=== PATIENT | male | born 1940 ===

== ENCOUNTER 2017-08-21 11:19 | Inpatient (IN) | payer OTHER ==
[~2017-08-21] VITALS: Ht 180.3 cm; Wt 97.5 kg
[2017-08-21] MEDS ORDERED: LEVSOD50 PO (15:25)
[2017-09-04 05:05] LABS: Hematocrit 40.1 % (37.0-53.0); Hemoglobin 12.8 g/dL (13.5-17.5); Mean Corpuscular HGB 28.4 pg (26.0-34.0); Mean Corpuscular HGB Conc 31.9 g/dL (31.5-36.5); Mean Platelet Volume 9.5 fL (9.1-12.4); Platelet Count 154 K/mm3 (150-400); RDW Coefficient Variation 12.5 % (11.7-14.2); White Blood Cell Count 12.92 K/mm3 (4.00-11.30)
[2017-09-04 05:10] LABS: Mean Corpuscular Volume 89 fL (80-100)
[2017-09-04 05:23] LABS: Anion Gap 8 mmol/L (6-16); Blood Urea Nitrogen 23 mg/dL (8-24); Bun/Creatinine Ratio 22.5 (12.0-20.0); CO2, Blood 25 mmol/L (21-32); Calcium, Blood 8.7 mg/dL (8.5-10.1); Chloride, Blood 105 mmol/L (98-108); Creatinine, Blood 1.02 mg/dL (0.60-1.20); Glomerular Filtration Rate >60 (60-); Glucose, Blood 154 mg/dL (70-99); Potassium, Blood 4.5 mmol/L (3.5-5.5); Sodium, Blood 138 mmol/L (136-145)
[2017-09-04 05:57] LABS: BAND PERCENT MAN 15 % (0-8); BASOPHILS PERCENT MAN 0 % (0-2); EOSINOPHILS PERCENT MAN 0 % (0-6); LYMPHOCYTES ABSOLUTE MAN 0.25 K/mm3 (0.84-5.20); LYMPHOCYTES PERCENT MAN 2 % (21-46); MONOCYTES ABSOLUTE MAN 0.51 K/mm3 (0.16-1.47); MONOCYTES PERCENT MAN 4 % (4-13); NEUTROPHILS ABSOLUTE MAN 12.14 K/mm3 (1.96-9.15); SEG NEUTROPHILS PERCENT MAN 79 % (41-73); TOTAL CELLS COUNTED 100
[2017-09-04] MEDS ORDERED: Percocet 5-3251 EACH PO (08:41)
[2017-09-04] MEDS ORDERED: ASPI325EC PO (08:41)
== END 2017-09-04 10:55 | disposition home or self-care (01) | DRG 470 ==
LOC: SURS 09-03 12:50 → PRE IP 09-03 14:00 → SURS 09-03 18:49
PROVIDERS: Orthopaedic Surgery
PROC: BQ111ZZ Fluoroscopy of Left Hip using Low Osmolar Contrast (ICD-10-PCS; 2017-09-03)
PROC: 0SRB04Z Replacement of Left Hip Joint with Ceramic on Polyethylene Synthetic Substitute, Open Approach (ICD-10-PCS; principal; 2017-09-03 14:00)
DX: M16.12 Unilateral primary osteoarthritis, left hip (principal); M24.7 Protrusio acetabuli; E03.9 Hypothyroidism, unspecified; Z79.899 Other long term (current) drug therapy
CPT/HCPCS: 36415; 72170; 80048; 85025; 86850; 86900; 86901; 88300; 97110; 97116; 97161; 97530; C1776; G8978; G8979; G8980; J0171; J0690; J0735; J1100; J1885; J2250; J2405; J2795; J3010; J7120

== ENCOUNTER 2020-10-18 09:54 | Inpatient (IN) | payer OTHER ==
[~2020-10-18] VITALS: Ht 180.3 cm; Wt 97.1 kg
[~2020-10-18 09:54] MED LIST: ASPI325EC PO; EUTHYROX50 MCG PO; Percocet 5-3251 EACH PO
[2020-10-18] MEDS ORDERED: Aspirin EC81 MG PO (10:06)
[2020-10-18] MEDS ORDERED: ATOR20 PO (10:24)
[2020-10-18] MEDS ORDERED: Docusate S50 MG/5 ML PO (10:25)
[2020-10-18] MEDS ORDERED: NITR.4SL SL (10:25)
[2020-10-18] MEDS ORDERED: FEROSUL325 M1 PO (10:29)
[2020-10-18 10:33] LABS: BASOPHILS ABSOLUTE AUTO 0.03 K/mm3 (0.00-0.23); BASOPHILS PERCENT AUTO 1 % (0-2); EOSINOPHILS PERCENT AUTO 2 % (0-6); Hematocrit 26.8 % (37.0-53.0); Hemoglobin 8.9 g/dL (13.5-17.5); IMMATURE GRAN ABSOLUTE AUTO 0.09 K/mm3 (0.00-0.10); IMMATURE GRAN PERCENT AUTO 2 % (0-1); LYMPHOCYTES ABSOLUTE AUTO 0.54 K/mm3 (0.84-5.20); LYMPHOCYTES PERCENT AUTO 10 % (21-46); MONOCYTES ABSOLUTE AUTO 0.34 K/mm3 (0.16-1.47); MONOCYTES PERCENT AUTO 7 % (4-13); Mean Corpuscular HGB 28.9 pg (26.0-34.0); Mean Corpuscular HGB Conc 33.2 g/dL (31.5-36.5); Mean Corpuscular Volume 87 fL (80-100); Mean Platelet Volume 9.4 fL (9.1-12.4); NEUTROPHILS ABSOLUTE AUTO 4.15 K/mm3 (1.96-9.15); NEUTROPHILS PERCENT AUTO 79 % (41-73); Platelet Count 152 K/mm3 (150-400); RDW Coefficient Variation 13.4 % (11.7-14.2); Red Blood Cell Count 3.08 M/mm3 (4.30-5.90); White Blood Cell Count 5.25 K/mm3 (4.00-11.30)
[2020-10-18 10:53] LABS: Alanine Aminotransfer (ALT/SGP 20 U/L (12-78); Albumin, Blood 3.1 g/dL (3.4-5.0); Albumin/Globulin Ratio 1.2 (0.8-1.8); Alk Phos 67 U/L (50-136); Anion Gap 5 mmol/L (6-16); Aspartate Aminotrans (AST/SGOT 15 U/L (12-37); Bilirubin, Total 0.3 mg/dL (0.1-1.0); Blood Urea Nitrogen 33 mg/dL (8-24); Bun/Creatinine Ratio 29.2 (12.0-20.0); CO2, Blood 23 mmol/L (21-32); Calcium, Blood 8.2 mg/dL (8.5-10.1); Chloride, Blood 112 mmol/L (98-108); Creatinine, Blood 1.13 mg/dL (0.60-1.20); Globulin, Blood 2.5 g/dL (2.2-4.0); Glomerular Filtration Rate >60 (60-); Glucose, Blood 109 mg/dL (70-99); Potassium, Blood 4.1 mmol/L (3.5-5.5); Sodium, Blood 140 mmol/L (136-145); Total Protein, Blood 5.6 g/dL (6.4-8.2)
--- NOTE | 2020-10-18 17:10 | NUR ---
History, Chart, Medications and Allergies reviewed before start of procedure. Patient confirms NPO status and agrees with scheduled surgery. Pre-Op teaching done. Pt verbalizes understanding. Lungs clear T/O to Auscultation.
--- NOTE | 2020-10-18 17:18 | NUR ---
10/18/20 1718 Jarrett Ramon History, Chart, Medications and Allergies reviewed before start of procedure. MONITOR INTACT WITH CONTINUOUS PULSE OXIMETRY AND INTERMITTENT BP. 3-LEAD EKG REVIEWED WITH PHYSICIAN PRIOR TO START OF PROCEDURE. O2 VIA N/C INTACT THROUGHOUT SEDATION/PROCEDURE. Bite Block Placed. PATIENT DETERMINED TO BE ASA APPROPRIATE FOR PROPOFOL SEDATION PRIOR TO START OF PROCEDURE BY DR. REID.
--- NOTE | 2020-10-18 19:21 | NUR ---
SHIFT SUMMARY: PATIENT ADMIT FROM ED THIS SHIFT. PT A&O; CALM AND COOPERATIVE WITH CARE. NO C/O PAIN SINCE ARRIVAL ON MEDICAL. SCOPE PERFORMED THIS SHIFT; X3 BIOPSIES TAKEN; PT TOLERATED WELL; CLEAR LIQUID DIET STARTED; PROCTOSCOPE PLANNED FOR TOMORROW, 10/19. REPORT GIVEN TO ONCOMING RN.
--- NOTE | 2020-10-19 04:38 | NUR ---
SHIFT SUMMARY A/OX4, SBA TO BATHROOM. GAIT APPEARS MORE STEADY WHILE AMBULATING. PLAN IS FOR CLEAR LIQUID DIET, NPO AFTER LUNCH. GOLYTELY TO BEGIN AT 0600. DENIES PAIN OR SOB. VSS, NO ACUTE CHANGES AT THIS TIME. BED IN LOWEST POSITION WITH CALL LIGHT IN REACH. WILL CONTINUE TO MONITOR AND REPORT TO ONCOMING RN.
[2020-10-19 06:15] LABS: Anion Gap 4 mmol/L (6-16); Blood Urea Nitrogen 27 mg/dL (8-24); Bun/Creatinine Ratio 24.5 (12.0-20.0); CO2, Blood 25 mmol/L (21-32); Calcium, Blood 8.3 mg/dL (8.5-10.1); Chloride, Blood 112 mmol/L (98-108); Glomerular Filtration Rate >60 (60-); Glucose, Blood 110 mg/dL (70-99); Sodium, Blood 141 mmol/L (136-145)
--- NOTE | 2020-10-19 10:26 | NUR ---
SPOKE WITH INFECTION CONTROL WELL DAY SURGERY ABOUT COVID TESTING PRIOR TO TODAYS SCOPE WITH VERIFICATION MADE BY LEE QUINONES IN DAY SURGERY THAT COVID TEST NOT REQUIRED FOR SCOPE TO BE COMPLETED.
[2020-10-19 15:50] LABS: Hematocrit 26.8 % (37.0-53.0); Hemoglobin 8.9 g/dL (13.5-17.5)
[2020-10-19 16:39] LABS: Percent Saturation 9.2 % (20.0-50.0)
--- NOTE | 2020-10-19 17:13 | NUR ---
Patient states colon prep results clear. History, Chart, Medications and Allergies reviewed before start of procedure. Lungs clear T/O to Auscultation. Patient confirms NPO status and agrees with scheduled surgery. Pre-Op teaching done. Pt verbalizes understanding.
--- NOTE | 2020-10-19 17:32 | NUR ---
10/19/20 1735 Jarrett Ramon History, Chart, Medications and Allergies reviewed before start of procedure. MONITOR INTACT WITH CONTINUOUS PULSE OXIMETRY AND INTERMITTENT BP. 3-LEAD EKG REVIEWED WITH PHYSICIAN PRIOR TO START OF PROCEDURE. O2 VIA N/C INTACT THROUGHOUT SEDATION/PROCEDURE. PATIENT DETERMINED TO BE ASA APPROPRIATE FOR PROPOFOL SEDATION PRIOR TO START OF PROCEDURE BY DR. REID.
--- NOTE | 2020-10-19 18:02 | NUR ---
Spiritual care note: Per admit trigger, I met with Mr. Ruth to offer education about ACP. He states he is happy with his full-code status and he trusts his family to know what to do. He was pleasantly dismissive. Advised I would remain available.
--- NOTE | 2020-10-19 18:37 | NUR ---
SHIFT SUMMARY PT COMPLETED COLONOSCOPY PREP THIS MORNING AND APPEARED MOSTLY CLEARED OTHER THAN BROWN SEDIMENTLIKE MATERIAL WHICH DAY SURGERY RN REPORTED ADEQUATE FOR PROCEDURE. PT AMBULATING IN ROOM SEVERAL TIMES AND THEN IN HALLWAY WITH 1 PERSON CGA. REPORTED A FEELING OF LIGHTHEADED AND DIZZINESS HAS IMPROVED THROUGH THE DAY. AT BEDSIDE THIS AFTERNOON PRIOR TO DAY SURGERY COMING TO PICK PT UP. DAY SURGERY HERE AT 1630.
--- NOTE | 2020-10-19 18:53 | NUR ---
DR REID AT BEDSIDE.
[2020-10-20 05:01] LABS: Hemoglobin 7.9 g/dL (13.5-17.5)
--- NOTE | 2020-10-20 05:19 | NUR ---
SHIFT SUMMARY PT SLEPT ON AND OFF THROUGHOUT THE NIGHT. EAR PLUGS PROVIDED AND PT STATES IT WAS HELPFUL WITH SLEEPING THIS EVENING. PT DENIED ANY BLOODY STOOLS THIS EVENING, IN FACT NO BOWEL MOVEMENTS AT ALL TONIGHT. PT DENIED ABD PAIN OR NAUSEA. ANXIOUS TO KNOW WHEN HE WILL BE ABLE TO RETURN HOME, BUT PT WAS PLEASANT AND COOPERATIVE. VITAL SIGNS STABLE. WILL CONTINUE TO MONITOR.
[2020-10-20 11:10] LABS: Hematocrit 27.3 % (37.0-53.0); Hemoglobin 9.2 g/dL (13.5-17.5)
[2020-10-20] MEDS ORDERED: PANT40 PO (11:53)
--- NOTE | 2020-10-20 13:37 | NUR ---
DISCHARGE INSTRUCTIONS COMPLETED AND DISCUSSED WITH PT EXPRESSING UNDERSTANDING. NEW SCRIPT FAXED TO [facility]. TO [facility] VIA W/C WITH .
== END 2020-10-20 12:59 | disposition home or self-care (01) | DRG 378 ==
LOC: ER 09:54 → MEDS 12:41
PROVIDERS: Emergency Medicine; Nurse Practitioner Acute Care; Student in an Organized Health Care Education/Training Program; ADMIT Internal Medicine
PROC: 0DB98ZX Excision of Duodenum, Via Natural or Artificial Opening Endoscopic, Diagnostic (ICD-10-PCS; principal; 2020-10-18 16:00)
PROC: 0DB68ZX Excision of Stomach, Via Natural or Artificial Opening Endoscopic, Diagnostic (ICD-10-PCS; 2020-10-18 16:00)
PROC: 0DBL8ZX Excision of Transverse Colon, Via Natural or Artificial Opening Endoscopic, Diagnostic (ICD-10-PCS; 2020-10-19)
PROC: 0DBN8ZX Excision of Sigmoid Colon, Via Natural or Artificial Opening Endoscopic, Diagnostic (ICD-10-PCS; 2020-10-19)
PROC: 0DBK8ZZ Excision of Ascending Colon, Via Natural or Artificial Opening Endoscopic (ICD-10-PCS; 2020-10-19)
PROC: 0DBL8ZZ Excision of Transverse Colon, Via Natural or Artificial Opening Endoscopic (ICD-10-PCS; 2020-10-19)
PROC: 0DBK8ZX Excision of Ascending Colon, Via Natural or Artificial Opening Endoscopic, Diagnostic (ICD-10-PCS; 2020-10-19 17:30)
DX: K92.1 Melena (principal); D62 Acute posthemorrhagic anemia; K63.5 Polyp of colon; K29.00 Acute gastritis without bleeding; I95.2 Hypotension due to drugs; T46.3X5A Adverse effect of coronary vasodilators, initial encounter; K57.30 Diverticulosis of large intestine without perforation or abscess without bleeding; N40.0 Benign prostatic hyperplasia without lower urinary tract symptoms; E03.9 Hypothyroidism, unspecified; K64.8 Other hemorrhoids; E78.5 Hyperlipidemia, unspecified; Z96.642 Presence of left artificial hip joint; Z79.82 Long term (current) use of aspirin; Z79.899 Other long term (current) drug therapy
CPT/HCPCS: 36415; 80048; 80053; 82607; 82728; 82746; 83540; 83550; 83690; 85014; 85018; 85025; 88305; 88342; 93005; 93010; 96374; 99285-25; A9270; C9113; J2704; J2916; J7120

== ENCOUNTER 2022-10-18 07:25 | Day surgery (SDC) | payer OTHER ==
[~2022-10-18] VITALS: Ht 180.3 cm; Wt 93.1 kg
[~2022-10-18 07:25] MED LIST changes: +ATOR20 PO; +Aspirin EC81 MG PO; +Docusate S50 MG/5 ML PO; +FEROSUL325 M1 PO; +NITR.4SL SL; +PANT40 PO
[2022-10-18 09:25] VITALS: BP 110/69
== END 2022-10-18 09:42 | disposition home or self-care (01) ==
LOC: ORSCSDS 07:25
PROVIDERS: Student in an Organized Health Care Education/Training Program
PROC: 0DBK8ZX Excision of Ascending Colon, Via Natural or Artificial Opening Endoscopic, Diagnostic (ICD-10-PCS; principal; 2022-10-18 08:45)
PROC: 0DBL8ZX Excision of Transverse Colon, Via Natural or Artificial Opening Endoscopic, Diagnostic (ICD-10-PCS; principal; 2022-10-18 08:45)
DX: K92.1 Melena (principal); Z86.010 Personal history of colon polyps; D12.3 Benign neoplasm of transverse colon; D12.2 Benign neoplasm of ascending colon; K57.30 Diverticulosis of large intestine without perforation or abscess without bleeding; K64.8 Other hemorrhoids; E78.5 Hyperlipidemia, unspecified; I25.10 Atherosclerotic heart disease of native coronary artery without angina pectoris; E03.9 Hypothyroidism, unspecified; Z79.899 Other long term (current) drug therapy
CPT/HCPCS: 88305; J2704; J7120

== ENCOUNTER → 2023-05-21 | Outpatient (CLI) | payer OTHER | LOC: PLD 07:37 → LAB SHORT 07:37 | DX: L57.0 Actinic keratosis (principal); L82.0 Inflamed seborrheic keratosis | CPT/HCPCS: 88305 ==

== ENCOUNTER 2023-09-10 20:00 | Emergency (ER) | payer OTHER ==
[~2023-09-10] VITALS: Ht 180.3 cm; Wt 90.7 kg
[2023-09-10 20:32] VITALS: BP 141/86
[2023-09-10] MEDS ORDERED: TETANUS AND DIPHTHERIA TOX IM ONE (20:35)
== END 2023-09-10 22:17 | disposition home or self-care (01) ==
LOC: ER 20:00
DX: S81.812A Laceration without foreign body, left lower leg, initial encounter (principal); Z23 Encounter for immunization; W28.XXXA Contact with powered lawn mower, initial encounter
CPT/HCPCS: 12004; 90471; 99282-25

== ENCOUNTER 2024-08-31 07:57 | Day surgery (SDC) | payer OTHER ==
[~2024-08-31] VITALS: Ht 177.8 cm; Wt 91.6 kg
[~2024-08-31 07:57] MED LIST changes: +FentaNYL Citrate 50 MCG/ML 2 ML Injection ONE; +Lidocaine 1%-Epineph 1:100000 20 ML MDV ONE; +Midazolam HCl 1MG / ML 2ML Vial ONE; +NS 500 ML IV ONE; +Sodium Bicarb 8.4% 1 MEQ/ML 50 ML Vial ONE
[2024-08-31] MEDS ORDERED: LEVOTHYROXINE50 MC9 PO (08:31)
[2024-08-31] MEDS ORDERED: [UNRECOGNIZED DRUG - OTHER] (08:32)
[2024-08-31] MEDS ORDERED: NS 500 ML IV ONE (08:46)
--- NOTE | 2024-08-31 08:55 | NUR ---
[facility] INJE[facility] 9 CC OF MIX OF ( 9 CC LIDOCAINE 1% WITH EPI 1:100,000 WITH 1 CC OF SODIUM BICARBONATE. PT TOLERATED WELL. CALL LIGHT WITHIN REACH.
--- NOTE | 2024-08-31 09:25 | NUR ---
08/31/24 0925 Alia Marquez PT TO STEP DOWN, REPORT RECEIVED FROM [facility]. PATIENT RESTING WITH EYES CLOSED, BUT AROUSABLE TO VERBAL STIMULI. PATIENT DENIES PAIN OR NAUSEA AT THIS TIME. CAP REFILL ON LEFT HAND <3 SECONDS. LEFT FINGERS WARM, DRY, PINK. DRESSING CDI
[2024-08-31 09:31] VITALS: BP 117/74
== END 2024-08-31 10:07 | disposition home or self-care (01) ==
LOC: ORSCSDS 07:57
PROVIDERS: Orthopaedic Surgery
PROC: 01N54ZZ Release Median Nerve, Percutaneous Endoscopic Approach (ICD-10-PCS; principal; 2024-08-31 09:30)
DX: G56.02 Carpal tunnel syndrome, left upper limb (principal); E78.5 Hyperlipidemia, unspecified; N18.9 Chronic kidney disease, unspecified; E03.9 Hypothyroidism, unspecified; Z79.82 Long term (current) use of aspirin; Z79.899 Other long term (current) drug therapy
CPT/HCPCS: J2250; J3010; J7040